=== PATIENT | female | born 1980 | race Caucasian/White ===

== ENCOUNTER → 2016-12-23 | Outpatient (CLI) | payer OTHER ==
[~2016-12-23] MED LIST: CYAN5000 SL; CYAN50TA PO; DCS100C PO; ERGO500028 PO; ESTR0.5T PO; ESTRATEST PO; FOLI0.4T2 PO; FOLI0.8T PO; FOLIC ACID PO; HYDR-3454 PO; HYDR-3720 PO; HYDR-3816 PO; IBP800T PO; IRON PO; LACT1CAP62 PO; LAMO100T69 PO; LISD50CA2 PO; MULT-975 PO; OMEP20CA12 PO; PANT40TA PO; PNT40TEC PO; SUVO15TA2 PO; TPR25T PO; URSO300C9 PO; VIT D; VITA80006 PO; VITAMIN B12 PO; VORT10TA PO; ZINC220C9 PO; [UNRECOGNIZED DRUG - OTHER] PO; [UNRECOGNIZED DRUG - OTHER] PO
--- OUTSIDE RECORDS SUMMARY | 2016-12-23 07:33 | XMS REPORT | Continuity of Care Document ---
Author Author [facility] Organization [facility] Address Unknown Phone Unavailable Care Team Providers Care Poultry Field Service Technician Name Role Phone ROOPA SHANKS MD PCP Insurance Providers Payer Name Policy Number Subscriber Name Relationship [facility] [id number] Jyoti Srivastava 18 Self / Same As Patient Advance Directives Directive Response Recorded Date/Time Advance Directives Yes 05/18/15 1:00am Health Care Power of Dining Room Host/Hostess Y ISIAH 05/18/15 1:00am Organ Donor Yes 05/18/15 1:00am Resuscitation Status Full Code 05/18/15 1:00am Chief Complaint and Reason for Visit Chief Complaint INTRACTABLE EPIGASTRIC PAIN;GALLBLADDER SLUDGE Reason for Visit Gallbladder sludge Epigastric abdominal pain Gallbladder sludge Problems Medical Problems Problem Onset Date Status Gallbladder sludge Unknown Active Epigastric abdominal pain Unknown Active Gallbladder sludge Unknown Active Medications Medication Dose Route Sig Days/Qty Instructions Order Date Discontinued Date Status Vortioxetine Hydrobromide 10 Mg PO DAILY 01/21/14 05/17/15 Discontinued Lamotrigine 100 Mg PO DAILY 01/21/14 08/31/14 Discontinued Lisdexamfetamine Dimesylate 50 Mg PO DAILY 01/21/14 Active [Folic Acid] 800 Mg PO DAILY 01/21/14 08/31/14 Discontinued [Vitamin B12] 5,000 Mcg PO DAILY 01/21/14 08/31/14 Discontinued Topiramate 25 Mg PO DAILY 01/21/14 05/17/15 Discontinued [Estratest] 1 Tab PO DAILY 01/21/14 01/28/14 Discontinued [Estratest] 1 Tab PO DAILY 01/28/14 08/31/14 Discontinued Docusate Sodium 1 Cap PO DAILY PRN CONSTIPATION 60 Qty 01/29/14 Discontinued Acetaminophen/Hydrocodone Bitart ([place]) 1-2 Tab PO EVERY 4HRS PRN PAIN 60 Qty 01/29/14 08/31/14 Discontinued Ibuprofen 1 Tab PO EVERY 6 HOURS PRN PAIN 60 Qty 01/29/14 08/31/14 Discontinued Omeprazole 20 Mg PO DAILY 30 Qty 08/31/14 08/31/14 Discontinued Pantoprazole Sodium 1 Tab PO DAILY 90 Qty 08/31/14 05/17/15 Discontinued Pantoprazole Sod 40 Mg PO MWF 05/17/15 05/18/15 Discontinued Ursodiol 300 Mg PO TWICE A DAY 05/17/15 05/18/15 Discontinued Estradiol 0.5 Mg PO TWICE A DAY 05/17/15 Active [Vit d] 05/17/15 05/18/15 Discontinued Folic Acid 800 Mcg PO TWICE A DAY 05/17/15 05/18/15 Discontinued Cyanocobalamin 5,000 Mcg PO DAILY 05/17/15 05/18/15 Discontinued Vitamin A 8,000 Unit PO TWICE A DAY 05/17/15 Active Multivitamin/Iron/Folic Acid 1 Each PO DAILY 05/17/15 05/18/15 Discontinued Lactobacillus Acidophilus 1 Cap PO DAILY 05/17/15 Active Zinc Sulfate 220 Mg PO THREE TIMES A DAY 05/17/15 05/18/15 Discontinued Hydrocodone Bit/Acetaminophen 1 Tab PO EVERY 6 HOURS PRN PAIN 12 Qty 05/18/15 Discontinued Ursodiol 300 Mg PO TWICE A DAY 05/18/15 Active Pantoprazole Sodium 40 Mg PO DAILY 05/18/15 Active Ergocalciferol 50,000 Units PO WEEKLY ON Fridays05/18/15 Active Folic Acid 800 Mcg PO DAILY 05/18/15 Active Cyanocobalamin (Vitamin B-12) 5,000 Mcg SL DAILY 05/18/15 Active Folic Acid 800 Mcg PO BEDTIME SAT & SUN 05/18/15 Active [Bariatric Vit W/Iron] 1 Tab PO DAILY 05/18/15 Active Zinc Sulfate 220 Mg PO THREE TIMES A DAY 05/18/15 Active Hydrocodone Bit/Acetaminophen 1 Each PO EVERY 4HRS PRN PAIN 30 Qty 01/01 Active Social History Social History Problem Response Recorded Date/Time Alcohol Use Rarely Uses 05/18/2015 1:00am Recreational Drug Use No 05/18/2015 1:00am Recent Foreign Travel No 05/18/2015 1:45am Recent Infectious Disease Exposure No 05/18/2015 1:00am Hospitalization with Isolation Denies 05/19/2015 9:49pm Sexually Transmitted Disease No 05/18/2015 1:00am HIV/AIDS No 05/18/2015 1:00am Smoking Status Never a Smoker 05/18/2015 1:00am Query Response Start Date Stop Date Smoking Status Never a Smoker Hospital Discharge Instructions Patient Instructions Physician Instructions New, Converted or Re-Newed RX: RX on Chart Plan of Care/Instructions/FU: 2 weeks Activity as Tolerated: No Discharge Diet: Regular Diet (bariatric) Other Inst to Patient Follow up Appt: Make appointment for 2 weeks. Instructions: No lifting greater than 10 pounds. No strenuous activity. May shower in 24 hours, no tub bath or soaking. Use incentive spirometer at home as directed. No Smoking Skin/Wound Care: May remove bandages in 24 hours. You need to leave the white strips over incision on they will fall off on their own. Symptoms to Report: Appetite Changes, Extremity Discoloration, Numbness/Tingling, Swelling Increased, Bleeding Excessive, Eyesight Changes, Pain Increased, Urine Color Change, Constipation(Persistent), Fever over 101 degree F, Pain/Pressure in chest, Urinating Difficulty, Cough Up/Vomit Blood, Heart Beat Irreg/Pounding, Pain/Pressure in jaw, Vaginal Bleeding Increase, Cramps in feet or legs, Lightheadedness, Pain/Pressure in shoulder, Diarrhea(Persistent), Memory Changes Suddenly, Questions/Concerns, Weight gain consecutive days, Dizziness/Fainting, Nausea/Vomiting, Shortness of Breath, Weight gain over 2 pounds. If eyes or skin turn yellow notify physician. If questions or concerns contact your physician Or seek help at emergency department. Care Plan Patient Instructions:: 2 weeks Plan of Care Discharge Date 05/19/15 8:50pm Disposition 01 HOME, SELF-CARE Instructions/Education Provided Cholelithiasis (ED) Acute Abdominal Pain (ED) Prescriptions See Medications Section Functional Status Query Response Date Recorded Comprehension Ability Understands Concepts May 18, 2015 1:15am Allergies, Adverse Reactions, Alerts Allergen Type Severity Reaction Status Last Updated NSAIDS (Non-Steroidal Anti-Inflammatory Drug) ([id number]) Allergy Unknown Active 05/17/15 Oxycodone Adverse Reaction Unknown Active 05/17/15 Immunizations Name Given Type Date of Pneumonia Vaccine 05/17/10 Historical Date of Influenza Vaccine 08/10/14 Historical Tetanus Booster (TDap) Unknown Historical Vital Signs Acute Vital Signs Vital Response Date/Time Temperature (Fahrenheit) 98.7 degrees F (97.6 - 99.5) Temperature (Calculated Celsius) 37.67892 degrees C (36.4 - 37.5) Temperature Source Temporal Pulse Rate (adult) 95 bpm (60 - 90) Respiratory Rate 26 bpm (12 - 24) O2 Sat by Pulse Oximetry 98 % (88 - 100) Blood Pressure 137/82 mm Hg Pain Pain Intensity 10 Height (Feet) 5 feet Height (Inches) 7.00 inches Height (Calculated Centimeters) 170.143911 cm Weight (Pounds) 164 pounds Weight (Calculated Grams) 99847.149 gm Weight (Calculated Kilograms) 74.057223 kilograms Calculated BMI 25.68 Results Laboratory Results Test Name Result Units Flags Reference Collection Date/Time Result Date/ Time Comments White Blood Count 4.1 10^3/uL L 4.3-11.0 04/22/2015 8:09am 04/22/2015 8: 22am Red Blood Count 4.55 10^6/uL 4.35-5.85 04/22/2015 8:09am 04/22/2015 8: 22am Hemoglobin 13.8 G/DL 11.5-16.0 04/22/2015 8:09am 04/22/2015 8:22am Hematocrit 40 % 35-52 04/22/2015 8:09am 04/22/2015 8:22am Mean Corpuscular Volume 89 FL 80-99 04/22/2015 8:09am 04/22/2015 8: 22am Mean Corpuscular Hemoglobin 30 PG 25-34 04/22/2015 8:04/22/2015 8: 22am Mean Corpuscular Hemoglobin Concent 34 G/DL 32-36 04/22/2015 8:04/2015 8:22am Red Cell Distribution Width 13.1 % 10.0-14.5 04/22/2015 8:2014 8:22am Platelet Count 215 10^3/uL 130-400 04/22/2015 8:04/22/2015 8:22am Mean Platelet Volume 11.4 FL H 7.4-10.4 04/22/2015 8:04/22/2015 8: 22am Neutrophils (%) (Auto) 39 % L 42-75 04/22/2015 8:04/22/2015 8:22am Lymphocytes (%) (Auto) 47 % H 12-44 04/22/2015 8:04/22/2015 8:22am Monocytes (%) (Auto) 9 % 0-12 04/22/2015 8:04/22/2015 8:22am Eosinophils (%) (Auto) 4 % 0-10 04/22/2015 8:04/22/2015 8:22am Basophils (%) (Auto) 1 % 0-10 04/22/2015 8:04/22/2015 8:22am Neutrophils # (Auto) 1.6 X 10^3 L 1.8-7.8 04/22/2015 8:04/22/2015 8: 22am Lymphocytes # (Auto) 1.9 X 10^3 1.0-4.0 04/22/2015 8:04/22/2015 8: 22am Monocytes # (Auto) 0.4 X 10^3 0.0-1.0 04/22/2015 8:04/22/2015 8: 22am Eosinophils # (Auto) 0.2 10^3/uL 0.0-0.3 04/22/2015 8:04/22/2015 8 :22am Basophils # (Auto) 0.0 10^3/uL 0.0-0.1 04/22/2015 8:04/22/2015 8: 22am Sodium Level 139 MMOL/L 135-145 04/22/2015 8:04/22/2015 8:59am Potassium Level 4.2 MMOL/L 3.6-5.0 04/22/2015 8:04/22/2015 8:59am Chloride Level 107 MMOL/L 98-107 04/22/2015 8:04/22/2015 8:59am Carbon Dioxide Level 25 MMOL/L 21-32 04/22/2015 8:04/22/2015 8: 59am Blood Urea Nitrogen 11 MG/DL 7-18 04/22/2015 8:04/22/2015 8:59am Creatinine 0.82 MG/DL 0.60-1.30 04/22/2015 8:04/22/2015 8:59am BUN/Creatinine Ratio 13 04/22/2015 8:04/22/2015 8:59am Estimat Glomerular Filtration Rate > 60 04/22/2015 8:2014 8:59am GFR INTERPRETIVE DATA UNITS FOR ESTIMATED GFR (eGFR): mL/min/1.73 M2 REFERENCE RANGE FOR ESTIMATED GFR (eGFR) eGFR NORMAL eGFR >60 MODERATELY DECREASED eGFR 30-59 SEVERLY DECREASED eGFR 15-29 KIDNEY FAILURE <15 (OR DIALYSIS) Glucose Level 81 MG/DL 70-105 04/22/2015 8:04/22/2015 8:59am Calcium Level 9.7 MG/DL 8.5-10.1 04/22/2015 8:04/22/2015 8:59am Total Bilirubin 0.6 MG/DL 0.1-1.0 04/22/2015 8:04/22/2015 8:59am Alkaline Phosphatase 90 U/L 40-136 04/22/2015 8:04/22/2015 8:59am Aspartate Amino Transf (AST/SGOT) 20 U/L 5-34 04/22/2015 8:2014 8:59am Alanine Aminotransferase (ALT/SGPT) 16 U/L 0-55 04/22/2015 8:04/22 8:59am Total Protein 7.3 G/DL 6.4-8.2 04/22/2015 8:04/22/2015 8:59am Albumin 4.3 G/DL 3.2-4.5 04/22/2015 8:04/22/2015 8:59am Triglycerides Level 81 MG/DL <150 04/22/2015 8:04/22/2015 8:59am Cholesterol Level 164 MG/DL < 200 04/22/2015 8:04/22/2015 8:59am HDL Cholesterol 55 MG/DL 40-60 04/22/2015 8:04/22/2015 8:59am LDL Cholesterol Direct 91 MG/DL 1-129 04/22/2015 8:04/22/2015 8: 59am VLDL Cholesterol 16 MG/DL 5-40 04/22/2015 8:04/22/2015 8:59am Thyroid Stimulating Hormone (TSH) 0.68 UIU/ML 0.35-4.94 04/22/2015 8: 04/22/2015 9:07am Hemoglobin A1c 5.6 % 4.5-6.2 04/22/2015 8:04/22/2015 9:14am Folate 12.5 NG/ML 1.5-24.0 04/22/2015 8:04/25/2015 7:59am Vitamin B12 Level 765 PG/ML 200-1000 04/22/2015 8:04/25/2015 7: 59am White Blood Count 8.2 10^3/uL 4.3-11.0 05/19/2015 9:05/19/2015 9: 32am Red Blood Count 4.27 10^6/uL L 4.35-5.85 05/19/2015 9:05/19/2015 9: 32am Hemoglobin 13.0 G/DL 11.5-16.0 05/19/2015 9:05/19/2015 9:32am Hematocrit 39 % 35-52 05/19/2015 9:05/19/2015 9:32am Mean Corpuscular Volume 90 FL 80-99 05/19/2015 9:05/19/2015 9: 32am Mean Corpuscular Hemoglobin 30 PG 25-34 05/19/2015 9:05/19/2015 9: 32am Mean Corpuscular Hemoglobin Concent 34 G/DL 32-36 05/19/2015 9:01/2015 9:32am Red Cell Distribution Width 13.2 % 10.0-14.5 05/19/2015 9:2014 9:32am Platelet Count 157 10^3/uL 130-400 05/19/2015 9:05/19/2015 9:32am Mean Platelet Volume 11.6 FL H 7.4-10.4 05/19/2015 9:am 05/19/2015 9: 32am Neutrophils (%) (Auto) 79 % H 42-75 05/18/2015 6:05/18/2015 6:59am Lymphocytes (%) (Auto) 16 % 12-44 05/18/2015 6:am 05/18/2015 6:59am Monocytes (%) (Auto) 5 % 0-12 05/18/2015 6:05/18/2015 6:59am Eosinophils (%) (Auto) 0 % 0-10 05/18/2015 6:am 05/18/2015 6:59am Basophils (%) (Auto) 0 % 0-10 05/18/2015 6:05/18/2015 6:59am Neutrophils # (Auto) 4.9 X 10^3 1.8-7.8 05/18/2015 6:am 05/18/2015 6: 59am Lymphocytes # (Auto) 1.0 X 10^3 1.0-4.0 05/18/2015 6:am 05/18/2015 6: 59am Monocytes # (Auto) 0.3 X 10^3 0.0-1.0 05/18/2015 6:am 05/18/2015 6: 59am Eosinophils # (Auto) 0.0 10^3/uL 0.0-0.3 05/18/2015 6:am 05/18/2015 6 :59am Basophils # (Auto) 0.0 10^3/uL 0.0-0.1 05/18/2015 6:am 05/18/2015 6: 59am Urine Color YELLOW 05/19/2015 9:10am 05/19/2015 9:41am Urine Clarity SLIGHTLY CLOUDY 05/19/2015 9:10am 05/19/2015 9:41am Urine pH 6 5-9 05/19/2015 9:10am 05/19/2015 9:41am Urine Specific [place] 1.010 * 1.016-1.022 05/19/2015 9:10a2014 9:41am Urine Protein NEGATIVE NEGATIVE 05/19/2015 9:10a05/19/2015 9:41am Urine Glucose (UA) NEGATIVE NEGATIVE 05/19/2015 9:10a05/19/2015 9: 41am Urine RBC (Auto) NEGATIVE NEGATIVE 05/19/2015 9:10a05/19/2015 9: 41am Urine Ketones 3+ * NEGATIVE 05/19/2015 9:10a05/19/2015 9:41am Urine Nitrite NEGATIVE NEGATIVE 05/19/2015 9:10a05/19/2015 9:41am Urine Bilirubin NEGATIVE NEGATIVE 05/19/2015 9:10a05/19/2015 9: 41am Urine Urobilinogen NORMAL MG/DL NORMAL 05/19/2015 9:10am 05/19/2015 9: 41am Urine Leukocyte Esterase NEGATIVE NEGATIVE 05/19/2015 9:10a2014 9:41am Urine RBC RARE /HPF 05/19/2015 9:10a05/19/2015 9:41am Urine WBC RARE /HPF 05/19/2015 9:10a05/19/2015 9:41am Urine Bacteria NEGATIVE /HPF 05/19/2015 9:10a05/19/2015 9:41am Urine Squamous Epithelial Cells NONE /HPF 05/19/2015 9:10a2014 9:41am Urine Crystals NONE /LPF 05/19/2015 9:10am 05/19/2015 9:41am Urine Casts NONE /LPF 05/19/2015 9:10a05/19/2015 9:41am Urine Mucus NEGATIVE /LPF 05/19/2015 9:10a05/19/2015 9:41am Urine Culture Indicated NO 05/19/2015 9:10a05/19/2015 9:41am Sodium Level 138 MMOL/L 135-145 05/19/2015 9:22am 05/19/2015 9:58am Potassium Level 3.6 MMOL/L 3.6-5.0 05/19/2015 9:22am 05/19/2015 9:58am Chloride Level 105 MMOL/L 98-107 05/19/2015 9:22am 05/19/2015 9:58am Carbon Dioxide Level 25 MMOL/L 21-32 05/19/2015 9:05/19/2015 9: 58am Blood Urea Nitrogen 5 MG/DL L 7-18 05/19/2015 9:05/19/2015 9:58am Creatinine 0.74 MG/DL 0.60-1.30 05/19/2015 9:05/19/2015 9:58am BUN/Creatinine Ratio 7 05/19/2015 9:05/19/2015 9:58am Estimat Glomerular Filtration Rate > 60 05/19/2015 9:2014 9:58am GFR INTERPRETIVE DATA UNITS FOR ESTIMATED GFR (eGFR): mL/min/1.73 M2 REFERENCE RANGE FOR ESTIMATED GFR (eGFR) eGFR NORMAL eGFR >60 MODERATELY DECREASED eGFR 30-59 SEVERLY DECREASED eGFR 15-29 KIDNEY FAILURE <15 (OR DIALYSIS) Glucose Level 103 MG/DL 70-105 05/19/2015 9:05/19/2015 9:58am Calcium Level 9.3 MG/DL 8.5-10.1 05/19/2015 9:05/19/2015 9:58am Total Bilirubin 0.7 MG/DL 0.1-1.0 05/19/2015 9:05/19/2015 9:58am Alkaline Phosphatase 88 U/L 40-136 05/19/2015 9:05/19/2015 9:58am Aspartate Amino Transf (AST/SGOT) 34 U/L 5-34 05/19/2015 9:2014 9:58am Alanine Aminotransferase (ALT/SGPT) 27 U/L 0-55 05/19/2015 9:05/19 9:58am Total Protein 6.7 G/DL 6.4-8.2 05/19/2015 9:05/19/2015 9:58am Albumin 4.0 G/DL 3.2-4.5 05/19/2015 9:05/19/2015 9:58am Amylase Level 79 U/L 25-125 05/19/2015 7:33pm 05/19/2015 8:02pm Lipase 29 U/L 8-78 05/19/2015 7:33pm 05/19/2015 8:02pm Procedures Procedure Status Date Provider(s) Laparoscopic cholecystectomy completed 05/18/15 KAYLEY ARANDA DO Encounters Encounter Location Date/Time Discharged Inpatient Via [facility] 05/18/15 1:00am Registered Clinic Via [facility] 05/16/15 1:19pm Registered Clinic Via [facility] 04/22/15 7:54am Recent Diagnosis Gallbladder sludge Epigastric abdominal pain Gallbladder sludge
--- NOTE | 2016-12-23 13:20 | Diagnostic Imaging Report ---
Bilateral diagnostic mammogram. CAD is utilized. COMPARISON: 01/14/2014. INDICATION: Lump in the upper outer aspect of the right breast. FINDINGS: The breasts are composed of heterogeneously dense parenchyma which may decrease mammographic sensitivity. There is no mass, architectural distortion, or suspicious cluster of calcifications seen. When compared to study from 01/14/2014, there is suggestion of generalized weight loss in a symmetric fashion. IMPRESSION: No mammographic evidence of malignancy. Ultrasound correlation pending. ACR BI-RADS Category 0: Incomplete. (Needs additional imaging evaluation). Result letter will be mailed to the patient. Note: At least 10% of breast cancer is not imaged by mammography. Dictated by: Dictated on workstation # [id number]
--- NOTE | 2016-12-23 15:35 | Diagnostic Imaging Report ---
EXAMINATION: Right breast ultrasound. INDICATION: Palpable lump at the 10 o'clock zone. FINDINGS: The four-quadrants and retroareolar region of the right breast were scanned with no definite abnormality seen. In the right axilla, there is a small benign-appearing lymph node noted measuring 8 mm in size with a preserved fatty hilum. No underlying mass at the palpable area is seen. IMPRESSION: No significant abnormality. Clinical followup is recommended. ACR BI-RADS Category 2: Benign findings. Result letter will be mailed to the patient. Note: At least 10% of breast cancer is not imaged by mammography. Dictated by: Dictated on workstation # [id number]
== END ==
LOC: RAD 07:30
PROVIDERS: ATTEND Family Medicine
DX: N63 Unspecified lump in breast (principal)
CPT/HCPCS: 76641; 77066

== ENCOUNTER → 2018-05-19 | Outpatient (CLI) | payer OTHER ==
--- NOTE | 2018-05-19 11:06 | Diagnostic Imaging Report ---
INDICATION: Routine screening. COMPARISON: 12/23/2016 and 01/14/2014. TECHNIQUE: 2D and 3D bilateral screening mammography was performed with CAD. FINDINGS: Both breasts remain heterogeneously dense, limiting the sensitivity of mammography. No mass or malignant appearing microcalcifications are seen. The axillae are unremarkable. IMPRESSION: No mammographic features suspicious for malignancy are identified. ACR BI-RADS Category 1: Negative. Result letter will be mailed to the patient. Note: At least 10% of breast cancer is not imaged by mammography. Dictated by: Dictated on workstation # [id number]
== END ==
LOC: RAD 07:45
PROVIDERS: ATTEND Family Medicine
DX: Z12.31 Encounter for screening mammogram for malignant neoplasm of breast (principal)
CPT/HCPCS: 77067

== ENCOUNTER → 2019-11-04 | Outpatient (CLI) | payer OTHER ==
--- NOTE | 2019-11-04 15:15 | Diagnostic Imaging Report ---
PROCEDURE: MR imaging of the brain without contrast. TECHNIQUE: Multiplanar, multisequence MR imaging of the brain was performed without contrast. INDICATION: Migraine headaches as well as weakness and loss of balance. COMPARISON: No prior MRI brain studies are available for comparison. FINDINGS: The ventricles and sulci are within normal limits. There are some periventricular and subcortical white matter foci bilaterally. This is greater than expected for a patient of this age. There is no midline shift. No acute intra-axial or extra-axial hemorrhage is detected. No diffusion restriction is identified. The normal expected flow-voids within the carotid siphons are seen. The corpus callosum is unremarkable. The sella and parasellar structures are unremarkable. IMPRESSION: Periventricular and subcortical white matter foci, greater than expected for a patient of this age. This is likely on the basis of chronic microvascular ischemia. Pattern is not classic for a demyelinating process such as MS; however, this cannot be entirely excluded. Dictated by: Dictated on workstation # [id number]
== END ==
LOC: RAD 13:41
PROVIDERS: ATTEND Family Medicine
DX: G43.909 Migraine, unspecified, not intractable, without status migrainosus (principal)
CPT/HCPCS: 70551